=== PATIENT | male | born 1965 | race Caucasian/White ===

== ENCOUNTER 2017-05-08 11:13 | Inpatient (IN) | payer BC ==
[~2017-05-08] VITALS: Ht 177.8 cm; Wt 103.9 kg
[2017-05-08 11:19] VITALS: BP 123/73
[2017-05-08] MEDS ORDERED: METOCLOPRAMIDE 10 MG TAB PO ONE (11:35)
[2017-05-08] MEDS ORDERED: ACETAMINOPHEN EXTRA STRENGTH 500 MG TAB PO ONE (11:35)
--- NOTE | 2017-05-08 11:38 | NUR ---
PT PRESENTS TO ER W/C/O HEADACHE X 3 DAYS. PT DENIES ANY MEDICAL HX. PT STATES HE'S VOMITED X2.PT STATES HE FEEL WEAK; SKIN IS PINK/WARM/DRY; AAOX4 WITH EVEN AND STEADY GAIT; LUNGS CLEAR BL; HR EVEN AND REGULAR; PT DENIES ANY FEVER, CP, SOB, OR COUGH AT THIS TIME; PATIENT STATES PAIN OF 8/10 AT THIS TIME; PATIENT POSITIONED FOR COMFORT; HOB ELEVATED; BEDRAILS UP X2; BED DOWN. ER MD WILL BE NOTIFIED.
[2017-05-08 11:46] LABS: BASOPHILS # (AUTO) 0.1 K/uL (0.00-0.22); BASOPHILS % (AUTO) 0.9 % (0.0-2.0); EOSINOPHILS # (AUTO) 0.1 K/uL (0-0.4); EOSINOPHILS % (AUTO) 0.9 % (0.0-4.0); HEMOGLOBIN 15.3 g/dL (12.0-18.0); LYMPHOCYTES # (AUTO) 0.7 K/uL (2.0-11.5); LYMPHOCYTES % (AUTO) 7.5 % (20.5-51.1); MEAN CORPUSCULAR HEMOGLOBIN 32 pg (27-31); MEAN CORPUSCULAR HGB CONC 33 g/dL (33-37); MEAN CORPUSCULAR VOLUME 96 fL (80-94); MONOCYTES # (AUTO) 0.2 K/uL (0.8-1.0); MONOCYTES % (AUTO) 2.2 % (1.7-9.3); NEUTROPHILS # (AUTO) 7.9 K/uL (1.8-7.7); NEUTROPHILS % (AUTO) 88.5 % (42.2-75.2); PLATELET COUNT (AUTO) 141 K/uL (140-450); RED BLOOD CELL COUNT(AUTO) 4.81 MIL/uL (4.20-6.10); RED CELL DISTRIBUTION WIDTH 12.4 % (11.6-13.7)
--- NOTE | 2017-05-08 11:46 | NUR ---
PT WENT TO CT SCAN ACCOMPANIED BY TECH.
[2017-05-08 11:57] LABS: ANION GAP 9.9 (8-16); CALCIUM 8.4 mg/dL (8.5-10.1); CARBON DIOXIDE 27.8 mmol/L (21-32); CREATININE 0.8 mg/dL (0.7-1.3); POTASSIUM 3.7 mmol/L (3.5-5.1)
--- NOTE | 2017-05-08 11:58 | NUR ---
XRAY AT BESIDE.
[2017-05-08 11:59] LABS: ALBUMIN 3.4 g/dL (3.4-5.0); TOTAL BILIRUBIN 2.2 mg/dL (0.0-1.0); TOTAL PROTEIN, SERUM 7.8 g/dL (6.4-8.2)
[2017-05-08] MEDS ORDERED: ONDANSETRON 4 MG/2 ML VIAL IVP PRN (12:35)
[2017-05-08] MEDS ORDERED: HYDROcodone/APAP 7.5/325 MG 1 TAB PO PRN (12:35)
--- NOTE | 2017-05-08 13:13 | NUR ---
LINDA MEDINA SAID TO TRANSFER PT AFTER 10 MINUTES BECAUSE THEY NEED TO PREPARE THE BED.
--- NOTE | 2017-05-08 13:13 | NUR ---
Patient will be admitted to care of DR VACA. Admited to TELE. Will go to room 119 B. Belongings list completed. Report to LINDA MEDINA.
[2017-05-08 13:24] LABS: BILIRUBIN,URINE 1+ (NEGATIVE); BLOOD, URINE NEGATIVE (NEGATIVE); COLOR,URINE ORANGE (YELLOW); LEUKOCYTE ESTERASE ,URINE NEGATIVE (NEGATIVE); NITRITE, URINE NEGATIVE (NEGATIVE); PH,URINE 5.5 (5.0-9.0); PROTEIN,URINE TRACE (NEGATIVE); UGLUCOSE NEGATIVE (NEGATIVE); UROBILINOGEN,URINE 0.2 EU/dL (0.2 - 1)
[2017-05-08 13:31] LABS: AMPHETAMINE, URINE NEG. ng/ml (NEG <=1000); BARBITURATE, URINE NEG. ng/ml (NEG <=200); BENZODIAZEPINE, URINE POS. ng/mL (NEG <=200); CANNABINOID, URINE NEG. ng/mL (NEG <=50); COCAINE, URINE NEG. ng/mL (NEG <=300); OPIATE, URINE NEG. ng/mL (NEG <=2000); PHENCYCLIDINE SCREEN,URINE NEG. ng/mL (NEG <=25)
[2017-05-08 13:34] LABS: APPEARANCE,URINE HAZY (CLEAR)
[2017-05-08 13:35] LABS: ICTOTEST POSITIVE (NEGATIVE)
[2017-05-08] MEDS ORDERED: MECLIZINE 25 MG TAB PO PRN (13:50)
[2017-05-08 13:55] LABS: INR 1.1 (0.8-1.2); PARTIAL THROMBOPLASTIN TIME 26.8 secs (22-35.6); PROTHROMBIN TIME 11.5 secs (10.8-13.4)
[2017-05-08 14:16] LABS: CHOL/HDL RATIO 3.6 (1-4.5); FREE T4 (FREE THYROXINE) 1.16 ng/dL (0.76-1.46); PHOSPHORUS 2.4 mg/dL (2.5-4.9); THYROID STIMULATING HORMONE 1.71 uIU/mL (0.34-3.74)
--- NOTE | 2017-05-08 14:25 | NUR ---
Admitted from ER , with chief complaint of GENERALIZED WEAKNESS , 51 y/o ,Male, Fatigued,AAOX4, NO S/S OF ACUTE DISTRESS. IV SITE PATENT AND INTACT. PT STATES PAIN IS 10/10 HEADACHE. PREVIOUSLY MEDICATED IN ER. PT APPEARED FATIGUED AND WEAK. HR DROPS TO 34. MD MADE AWARE. CITY WEIGHMASTER MADE AWARE. PT oriented to call light, bed, phone,television, bathroom, smoking policy, visiting hours, procedures, ID bracelet on. Belongings list checked.
[2017-05-08] MEDS ORDERED: NACL 0.9% 1,000 ML IV SCH (14:30)
--- NOTE | 2017-05-08 14:49 | NUR ---
NO ICU BED AVAILABLE AT THIS TIME.
[2017-05-08 15:28] LABS: ACETAMINOPHEN < 0.5 ug/ml (10-30); SALICYLATE < 2.8 mg/dL (2.8-20.0)
[2017-05-08 16:00] VITALS: BP 121/71
[2017-05-08] MEDS ORDERED: ATORVASTATIN 20 MG TAB PO SCH (16:30)
[2017-05-08] MEDS ORDERED: ECOTRIN 81 MG TABEC PO SCH (16:30)
--- NOTE | 2017-05-08 16:35 | NUR ---
PT TRANSFERRED TO ICU.
--- NOTE | 2017-05-08 17:00 | NUR ---
PATIENT RECEIVED FROM LINDA GUADARRAMA. PATIENT IS ALERT AND ORIENTED TO PERSON, PLACE, DATE AND TIME. RIGHT AC PERIPHERAL IV G 20 PATENT AND INTACT. SKIN WARM TO TOUCH WNL, TOENAILS WNL, NO EDEMA, WITH HAIR GROWTH AND +2 BILATERAL PEDAL PULSES. WITH MULTIPLE SKIN HYPOPIGMENTATION NOTED. URINE AND BOWEL CONTINENT, ABLE TO HIS NEEDS KNOWN. SURGICAL SCARRING NOTED ON THE RIGHT KNEE AND RIGHT LATERAL ANKLE. PATIENT CLAIMED THAT HE HAS PLATE ON THE KNEE AND SCREWS ON THE ANKLE DONE IN [facility]. MADE COMFORTABLE IN BED. CALL LIGHT WITHIN REACH. WILL CONTINUE TO MONITOR PATIENT.
[2017-05-08] MEDS: NACL 0.9% 1,000 ML IV SCH (17:16)
[2017-05-08 18:00] VITALS: BP 124/77
--- NOTE | 2017-05-08 18:09 | NUR ---
PATIENT IS EATING DINNER AT THIS TIME. NO COMPLAINTS OF NAUSEA AND VOMITING MADE. WILL MONITOR PATIENT.
--- NOTE | 2017-05-08 19:14 | NUR ---
REPORT GIVEN TO NIGHT RN FOR CONTINUITY OF CARE. PATIENT IN STABLE CONDITION.
--- NOTE | 2017-05-08 19:20 | NUR ---
RECEIVED PT FROM KIRBY RN PT MICRONESIAN SPEAKER AAOX4 HOB 30 DEGREE ON ROTARY SHEAR WORKER HELPER BRADYCARDIA HR 41 AND DROP TO 39 AND BACK TO 41 IV ON RT AC INFUSING WELL DENIES ANY PAIN OR DISCOMFORT PA IS REPOSITIONED BLE SEQUENTIAL STOCKING WILL BE PUT ON TO THE PT INITIAL ASSESSMENT DONE
--- NOTE | 2017-05-08 19:30 | NUR ---
PUT STANDBY EXTERNAL PACEMAKER AT BEDSIDE.
[2017-05-08 20:00] VITALS: BP 117/66
--- NOTE | 2017-05-08 20:20 | NUR ---
PTON CUSTOMER SUPPORT AGENT SB ASYMPTOMATIC DR VILLEDA IS HERE AND WAS NOTIFY PT CONDITION
[2017-05-08] MEDS: DOCUSATE SODIUM 100 MG GELCAP PO SCH (21:01)
--- NOTE | 2017-05-08 21:14 | NUR ---
PT WATCHING TV, DENIES ANY DISCOMFORT AT THIS TIME ON UTILIZATION REVIEW NURSE ONE EPISODE THIRD DEGREE AV BLOCK , CHARGE NURSE ALLYSON AWARE AND WILL REPORT TO DR VILLEDA
--- NOTE | 2017-05-08 21:15 | NUR ---
HAD A BOUT OF COMPLETE HEART BLOCK SEEN IN THE MONITOR; DR. VILLEDA WAS INFORMED AND AWARE;NO NEW ORDER MADE.
[2017-05-08 22:00] VITALS: BP 111/88
--- NOTE | 2017-05-08 22:16 | NUR ---
PT WATCHING TV DENIES ANY DISCOMFORT AT THIS TIME ON TRAILER CHIEF SB HR 41 VARY TO 38, 39
[2017-05-09] VITALS (11 sets, daily range): BP systolic 103–130; BP diastolic 58–87
--- NOTE | 2017-05-09 | NUR ---
PT REPOSITIONED Q2H NOT DISTRESS NOTED EKG DONE SB WITH 1 DEGREE AV BLOCK PT ON CARDIAC MONIOR SB 1 DEGREE AV BLOCK GETTING SLEEP
[2017-05-09] MEDS: ACETAMINOPHEN 325 MG TAB PO PRN ×2 (00:54→21:01)
--- NOTE | 2017-05-09 01:30 | NUR ---
DR. VILLEDA IN, UPDATED ON PATIENT'S MEDICAL CONDITION ESPECIALLY PATIENT'S CARDIAC RHYTHM AND HE HIMSELF OBSERVE PATIENT'S VARIABLE CARDIAC RHYTHM FROM SINUS CHIARA WITH IST DEGREE AVB, JUNCTIONAL RHYTHM TO COMPLETE HEART BLOCK; NO FURTHER ORDER MADE; PATIENT STILL AWAITING TO BE SEEN BY A WET MIXER.
--- NOTE | 2017-05-09 02:13 | NUR ---
PT AWAKE WATCHING TV DENIES ANY PAIN SB HR 42, REPOSITIONED Q2H
--- NOTE | 2017-05-09 03:50 | NUR ---
OBSERVED PATIENT IN CHB AGAIN; PATIENT IS SLEEPING BUT AROUSABLE; PAGED DR. VILLEDA AND INFORM HIM AGAIN ABOUT THE PATIENT'S CARDIAC RHYTHM AND EVEN SUGGESTED IF I COULD PUT OR ATTACH THE PATIENT INTO A PERCUTANEOUS PACEMAKER BUT HE SAID "NO".
--- NOTE | 2017-05-09 04:00 | NUR ---
PT AWAKE, SPONGE BATH GIVEN ON SIGNING AGENT SB 1 AV BLOCK DENIES ANY PAIN OR DISCOMFORT PT REPOSITIONED Q2H , IV ON RT AC INFUSING WELL.
[2017-05-09] MEDS: NACL 0.9% 1,000 ML IV SCH ×2 (04:44→05:25)
[2017-05-09] MEDS ORDERED: KETOROLAC 30 MG/ML VIAL IVP ONE (05:40)
[2017-05-09 05:52] LABS: BASOPHILS # (AUTO) 0.1 K/uL (0.00-0.22); BASOPHILS % (AUTO) 1.3 % (0.0-2.0); EOSINOPHILS # (AUTO) 0.1 K/uL (0-0.4); EOSINOPHILS % (AUTO) 1.3 % (0.0-4.0); HEMATOCRIT 44.2 % (36-52); HEMOGLOBIN 14.6 g/dL (12.0-18.0); LYMPHOCYTES % (AUTO) 10.3 % (20.5-51.1); MEAN CORPUSCULAR HEMOGLOBIN 32 pg (27-31); MEAN CORPUSCULAR HGB CONC 33 g/dL (33-37); MEAN CORPUSCULAR VOLUME 96 fL (80-94); MONOCYTES % (AUTO) 9.8 % (1.7-9.3); NEUTROPHILS # (AUTO) 7.6 K/uL (1.8-7.7); NEUTROPHILS % (AUTO) 77.3 % (42.2-75.2); PLATELET COUNT (AUTO) 133 K/uL (140-450); RED BLOOD CELL COUNT(AUTO) 4.63 MIL/uL (4.20-6.10); RED CELL DISTRIBUTION WIDTH 12.7 % (11.6-13.7); WHITE BLOOD COUNT (AUTO) 9.8 K/uL (4.8-10.8)
[2017-05-09 06:06] LABS: ANION GAP 9.8 (8-16); CALCIUM 7.9 mg/dL (8.5-10.1); CREATININE 0.8 mg/dL (0.7-1.3); POTASSIUM 3.8 mmol/L (3.5-5.1)
[2017-05-09 06:13] LABS: MAGNESIUM 1.9 mg/dL (1.8-2.4); PHOSPHORUS 2.4 mg/dL (2.5-4.9)
--- NOTE | 2017-05-09 06:27 | NUR ---
PT AAOX4 GETTING SLEEP ON INDUSTRIAL GAS SERVICE HELPER SB 1 DEGREE AV BLOCK ON TKO HR 41 VARY 38
[2017-05-09] MEDS: CALCIUM CARBONATE 500 MG TAB PO SCH ×2 (06:35→21:00)
--- NOTE | 2017-05-09 07:10 | NUR ---
RECEIVED REPORT FROM NIGHT RN FOR CONTINUITY OF CARE. PATIENT IS ALERT AND ORIENTED X4. ABLE TO MAKE HIS NEEDS KNOWN. RIGHT AC PERIPHERAL IV G20 PATENT AND INTACT. CALL LIGHT WITHIN REACH. WILL CONTINUE TO MONITOR PATIENT.
--- NOTE | 2017-05-09 07:30 | NUR ---
BREAKFAST TRAY SERVED.
[2017-05-09] MEDS ORDERED: APAP/BUTAL/CAFF 325/50/40 MG 1 TAB PO PRN ×2 (08:05→14:00)
--- NOTE | 2017-05-09 08:25 | NUR ---
PATIENT HAS BEEN SCREENED AND CATEGORIZED MODERATE NUTRITION RISK. PATIENT WILL BE SEEN WITHIN 3-5 DAYS OF ADMISSION. 05/11/17-05/13/[address]
[2017-05-09] MEDS: DOCUSATE SODIUM 100 MG GELCAP PO SCH ×2 (08:42→21:01)
[2017-05-09] MEDS: ATORVASTATIN 20 MG TAB PO SCH (08:42)
[2017-05-09] MEDS: ECOTRIN 81 MG TABEC PO SCH (08:43)
[2017-05-09] MEDS ORDERED: PANTOPRAZOLE 40 MG INJ VIAL IVP SCH (09:00)
--- NOTE | 2017-05-09 09:00 | NUR ---
RESIDENT PHYSICIAN DR FARIAS MADE AWARE OF PATIENT'S HEART RATE OF 33. PATIENT IS ASYMPTOMATIC NO COMPLAINTS OF DIZZINESS NOR NAUSEA AND VOMITING. BP 110/45. WILL CONTINUE TO MONITOR PATIENT.
--- NOTE | 2017-05-09 10:38 | NUR ---
CM NOTE RECEIVED ORDER FOR TRANSFER FOR HIGHER LEVEL OF CARE, INFORMED MY [facility] CM KARSON Rowley # [phone] EXT [phone] AND SHE SAID [facility] IS THEIR CONTRACTED FACILITY. INITIAL REVIEW FAXED TO MY [facility] [phone] KARSON TIERNEY [phone] EXT [phone]. CALLED [facility] AND SPOKE WITH DMITRI OF ADMITTING [phone] TO REQUEST FOR A BED. CALLED [facility] TO GET AN ACCEPTING DOCTOR IN [facility] [phone], AND I WAS INFORMED THAT ROUNDING TODAY IS DR. CARTAGENA, DR. Amaris FARIAS AWARE. SPOKE WITH DR. Amaris FARIAS WHO SAID WE HAVE A ILLUSTRATOR SET, DR. Jered MACIAS, TO SEE THE PATIENT SO NO NEED TO TRANSFER PATIENT FOR HIGHER LEVEL OF CARE. DR. Amaris FARIAS SAID SHE WILL INFORM ACCEPTING DOCTOR IN [facility]: TRANSFER CANCELLED. SPOKE WITH DMITRI OF [place] ADMITTING TO CANCEL REQUEST FOR BED.
--- NOTE | 2017-05-09 14:14 | NUR ---
*LATE ENTRY CM NOTE PER ICU DIRECTOR JORGITO, PER [facility], MY [facility] PATIENTS GO TO DR. FRANCISCO'S GRP. RECEIVED A CALL FROM MY [facility] JULIO CESAR Gutierrez PH# [phone] EXT [phone] AND SHE SAID PATIENT HAS TO BE TRANSFERRED TO THEIR CONTRACTED FACILITY. SPOKE WITH DR. Amaris FARIAS PH# [phone] TO INFORM HER AND SHE SAID PATIENT NEEDS TO BE SEEN BY AUTOMOTIVE TECHNOLOGY INSTRUCTOR FIRST BECAUSE PULSE RATE IS LOW AND NOT STABLE FOR TRANSFER AT THIS TIME. JULIO CESAR Gutierrez AWARE.
[2017-05-09] MEDS ORDERED: SODIUM PHOS / POTASSIUM PHOS 1 PKT PDR PO SCH (19:00)
--- NOTE | 2017-05-09 19:25 | NUR ---
RECEIVED REPORT FROM KIRBY MCKEON
--- NOTE | 2017-05-09 19:30 | NUR ---
REPORT GIVEN TO NIGHT RN FOR CONTINUITY OF CARE. PATIENT IS STABLE CONDITION. STILL AWAITING FOR DR. Leni MACIAS TO SEE PATIENT.
--- NOTE | 2017-05-09 19:30 | NUR ---
PATIENT IN BED NO SIGNS OF DISTRESS. PATIENT AOX4. CLEAR BREATH SOUNDS ON AUSCULTATION. SINUS CHIARA ON MONITOR, ACTIVE BOWEL SOUNDS. PATIENT VOIDING. PATIENT WALKS OCCASIONALLY. IV 20G ON RIGHT AC. PATIENT AWAITING CONSULT FROM ANTIQUE AUTOMOBILES REPAIRER
--- NOTE | 2017-05-09 21:10 | NUR ---
PATIENT CHANGED TO TELE STATUS. HEART RATE 39, PATIENT IS NOT IN DISTRESS.
[2017-05-09] MEDS ORDERED: SODIUM PHOS / POTASSIUM PHOS 1 PKT PDR ONE (21:46)
--- NOTE | 2017-05-09 23:00 | NUR ---
PATIENT VOIDED 300ML, TOLERATED WELL. NO SIGNS OF DISTRESS.
[2017-05-10] VITALS (7 sets, daily range): BP systolic 109–128; BP diastolic 64–76
--- NOTE | 2017-05-10 | NUR ---
PATIENT IN BED SLEEPING
--- NOTE | 2017-05-10 04:00 | NUR ---
PATIENT SLEEPING, NO SIGNS OF DISTRESS. FREQUENT VISUAL CHECKS, HEART RATE 38, PATIENT ASYMPTOMATICS.
[2017-05-10] MEDS: NACL 0.9% 1,000 ML IV SCH (05:25)
[2017-05-10 05:39] LABS: BASOPHILS # (AUTO) 0.1 K/uL (0.00-0.22); BASOPHILS % (AUTO) 1.5 % (0.0-2.0); EOSINOPHILS # (AUTO) 0.1 K/uL (0-0.4); EOSINOPHILS % (AUTO) 1.5 % (0.0-4.0); HEMATOCRIT 45.5 % (36-52); HEMOGLOBIN 15.1 g/dL (12.0-18.0); LYMPHOCYTES # (AUTO) 1.4 K/uL (2.0-11.5); LYMPHOCYTES % (AUTO) 16.9 % (20.5-51.1); MEAN CORPUSCULAR HEMOGLOBIN 32 pg (27-31); MEAN CORPUSCULAR HGB CONC 33 g/dL (33-37); MEAN CORPUSCULAR VOLUME 96 fL (80-94); MONOCYTES # (AUTO) 0.6 K/uL (0.8-1.0); MONOCYTES % (AUTO) 7.8 % (1.7-9.3); NEUTROPHILS # (AUTO) 5.9 K/uL (1.8-7.7); NEUTROPHILS % (AUTO) 72.3 % (42.2-75.2); PLATELET COUNT (AUTO) 137 K/uL (140-450); RED BLOOD CELL COUNT(AUTO) 4.74 MIL/uL (4.20-6.10); RED CELL DISTRIBUTION WIDTH 12.3 % (11.6-13.7); WHITE BLOOD COUNT (AUTO) 8.1 K/uL (4.8-10.8)
--- NOTE | 2017-05-10 06:30 | NUR ---
IV IN THE RIGHT AC INFILTRATED, IV REMOVED. NEW KATEY PLACED IN RIGHT FOREARM.
[2017-05-10 07:00] LABS: ANION GAP 10.9 (8-16); CALCIUM 8.2 mg/dL (8.5-10.1); CARBON DIOXIDE 25.7 mmol/L (21-32); CREATININE 0.8 mg/dL (0.7-1.3); POTASSIUM 3.6 mmol/L (3.5-5.1)
[2017-05-10 07:03] LABS: PHOSPHORUS 3.2 mg/dL (2.5-4.9)
--- NOTE | 2017-05-10 07:30 | NUR ---
REPORT GIVEN TO MARIELLE MCKEON
--- NOTE | 2017-05-10 07:32 | NUR ---
RECEIVED REPORT FROM LINDA BIRD. NO SIGNS OF ACUTE DISTRESS AT THIS TIME, DENIES PAIN. PT IS AAOX4. PT IS ON ROOM AIR. IV TO RIGHT FOREARM #20 PATENT AND INTACT. SKIN IS INTACT. SAFETY PRECAUTIONS IN PLACE WITH BED IN LOWEST POSITION AND SIDE RAILS UP. CALL LIGHT WITHIN REACH. PT IS CURRENTLY SINUS BRADYCARDIA ON THE MONITOR. PT TO BE TRANSFERRED TO TELEMETRY UNIT, ROOM 107B. CALLED UNIT, BUT INFORMED CHARGE NURSE IS ROUNDING. WILL FOLLOW UP. Addendum: 05/10/17 at 0941 by Rahel Arteaga RN PT IS SB WITH 1ST DEGREE AVB
--- NOTE | 2017-05-10 07:45 | NUR ---
DR. VACA' GROUP IN TO SEE PT. WILL FOLLOW UP ON ORDERS.
[2017-05-10] MEDS ORDERED: PROBIOTIC SCREEN 1 EA MISC MC PRN (07:50)
--- NOTE | 2017-05-10 08:06 | NUR ---
PT UP AND EATING BREAKFAST WITH NO ISSUES. WILL CONTINUE TO MONITOR.
[2017-05-10] MEDS: ATORVASTATIN 20 MG TAB PO SCH (08:24)
[2017-05-10] MEDS: DOCUSATE SODIUM 100 MG GELCAP PO SCH ×2 (08:24→20:09)
[2017-05-10] MEDS: CALCIUM CARB/VIT-D 500 MG/200 IU 1 TAB PO SCH (08:24)
[2017-05-10] MEDS: ECOTRIN 81 MG TABEC PO SCH (08:25)
[2017-05-10] MEDS: CALCIUM CARBONATE 500 MG TAB PO SCH ×2 (08:27→20:10)
--- NOTE | 2017-05-10 08:28 | NUR ---
PT TOLERATED MEDS WELL.
[2017-05-10] MEDS ORDERED: ASPI81CT80 PO (08:31)
[2017-05-10] MEDS ORDERED: ACET-9234 PO (08:31)
[2017-05-10] MEDS ORDERED: ATOR20TA PO (08:31)
[2017-05-10] MEDS ORDERED: OSC500 PO (08:31)
--- NOTE | 2017-05-10 08:32 | NUR ---
PT TO BE TRANSFERRED TO CONTRACTED FACILITY. WILL FOLLOW UP WITH CASE MANAGEMENT.
--- NOTE | 2017-05-10 08:34 | NUR ---
CM NOTE CONCURRENT REVIEW AND ORDER FOR TRANSFER TO CONTRACTED FACILITY FAXED TO MY [facility] [phone] KARSON TIERNEY [phone] EXT [phone].
--- NOTE | 2017-05-10 09:57 | NUR ---
JULIO CESAR LUGO SPOKE WITH MY FAMILY [facility] JULIO CESAR Gutierrez PH [phone] AND SHE SAID TO SEND INQUIRY FOR A BED TO [facility] AND [facility]. SPOKE WITH NURSE AUTO BRAKE MECHANIC NEO SINGH OF [facility] PH# [phone] AND SHE SAID THEY DON'T HAVE ANY BED AVAILABLE AT THIS TIME. SPOKE WITH DMITRI OF [facility] [phone] WHO SAID WE'RE WAITING FOR AN ACCEPTING DOCTOR AND ROOM. PER JULIO CESAR TY, ACCEPTING FACILITY [place] AUTH# [id number]
--- NOTE | 2017-05-10 09:59 | NUR ---
BROUGHT PT HIS BIBLE REQUESTED. ALL NEEDS MET. CALL LIGHT WITHIN REACH.
--- NOTE | 2017-05-10 10:54 | NUR ---
CM NOTE SPOKE WITH DMITRI OF [facility] TO FOLLOW UP AND HE SAID ACCEPTING IS DR. CARTAGENA AND STILL WAITING FOR A BED. SPOKE WITH MY [facility] KARSON PH [phone] AND SHE SAID [facility]SP[facility] AUTH# [id number]. CHARGE NURSE LELIA AND ICU NURSE MARIELLE MCGILL.
--- NOTE | 2017-05-10 11:23 | NUR ---
RECEIVED CALL FROM LAB. PT HAS POSITIVE MRSA OF THE NARES, REPORTED TO DR. FARIAS. CONTACT ISOLATION PROTOCOL INITIATED.
--- NOTE | 2017-05-10 11:27 | NUR ---
NOTIFIED KIRBY FROM CASE MANAGEMENT THAT PT IS POSITIVE MRSA FOR NARES.
--- NOTE | 2017-05-10 12:05 | NUR ---
PT UP AND EATING LUNCH WITH NO ISSUES. CALL LIGHT WITHIN REACH.
--- NOTE | 2017-05-10 13:10 | NUR ---
PT'S CHILDREN PRESENT AT BEDSIDE.
[2017-05-10] MEDS: CHLORHEXADINE GLUC 2% CLOTH TP SCH (13:33)
[2017-05-10] MEDS: MUPIROCIN 2% OINT 22 GM TUBE TP SCH (13:33)
--- NOTE | 2017-05-10 13:37 | NUR ---
PT TOLERATED MEDS WELL.
--- NOTE | 2017-05-10 14:04 | NUR ---
RECEIVED UPDATE FROM GREY GOODS TESTER, KIRBY. AWAITING CALLBACK FROM [facility] REGARDING ISOLATION BED AT THIS TIME.
--- NOTE | 2017-05-10 14:06 | NUR ---
CM NOTE SPOKE WITH DMITRI OF [facility] [phone] TO FOLLOW UP ON BED FOR PATIENT. PER DMITRI, STILL WAITING FOR A BED. GAVE HIM THE NUMBER TO THE NURSING STATION WHERE PATIENT IS IN CASE IT BECOMES AVAILABLE AT A LATER TIME TODAY. ICU NURSE MARIELLE MCGILL.
--- NOTE | 2017-05-10 15:06 | NUR ---
CHECKED ON PT. ALL NEEDS MET AT THIS TIME. CALL LIGHT WITHIN REACH.
--- NOTE | 2017-05-10 16:23 | NUR ---
PT'S PRESENT AT BEDSIDE.
--- NOTE | 2017-05-10 18:29 | NUR ---
CHECKED ON PT. ALL NEEDS MET AT THIS TIME. CALL LIGHT WITHIN REACH.
--- NOTE | 2017-05-10 19:15 | NUR ---
RECEIVED REPORT FROM LINDA PALOMARES AT BEDSIDE, PT IS AAOX4, ABLE TO FOLLOW COMMANDS AND MAKE NEEDS KNOWN, DENIES PAIN, VSS, NO S/S OF DISTRESS, BREATHING EVEN AND UNLABORED, CLEAR LUNG SOUNDS, ON RA, DENIES CHEST PAIN, SB WITH ONE DEGREE OF AV BLOCK, SOFT ABDOMEN WITH ACTIVE BOWEL SOUNDS, CONTINENT WITH B&B'S, ABLE TO AMBULATE WITH STEADY GAIT, AFEBRILE, SKIN IS INTACT, WARM AND DRY TO TOUCH, IV SITE TO RIGHT FOREARM 20GA RUNNING WITH NS AT 10ML, SCD'S TO BLE, SAFETY MEASURES IN PLACE, CALL LIGHT WITHIN REACH, WILL CONTINUE TO MONITOR.
--- NOTE | 2017-05-10 19:17 | NUR ---
ENDORSED CARE TO LINDA JIMENEZ. PT IN STABLE CONDITION.
--- NOTE | 2017-05-10 20:40 | NUR ---
RECEIVED REPORT FROM ICU NURSE. PT FAMILY AT BEDSIDE. PT RESTING IN BED, AOX4, ABLE TO VERBALIZE NEEDS. VS NOTED, BP 114/65, HR 44, SPO2 94% AT ROOM AIR, RR 18, TEMP 98.2; PT C/O GENERALIZED WEAKNESS. PT DENIES CHEST PAIN, SOB OR S/S OF ACUTE DISTRESS. IV ACCESS ASYMPTOMATIC, PATENT AND INTACT. IVF INFUSING WELL. DISCUSSED AND REVIEWED PLAN OF CARE WITH PT. PT VERBALIZED UNDERSTANDING. PT ASKING FOR DOCTOR'S NOTE FOR WORK, WILL NOTIFY DR VILLEDA, BANDER AND CELLOPHANER MACHINE FOR DR VACA. SAFETY MEASURES ENSURED. CALL LIGHT WITHIN REACH. WILL CONTINUE TO MONITOR.
[2017-05-10] MEDS: ACETAMINOPHEN 325 MG TAB PO PRN (23:55)
--- NOTE | 2017-05-10 23:55 | NUR ---
PT C/O HEADACHE. SEE PAIN ASSESSMENT. ADMINISTERED TYLENOL PRN ORDERED. TEMP 99.8, COOLING MEASURES ENSURED AND TYLENOL ALREADY ADMINISTERED. IVF INFUSING WELL. ALL NEEDS MET. SAFETY MEASURES ENSURED. CALL LIGHT WITHIN REACH. WILL CONTINUE TO MONITOR.
[2017-05-11] VITALS: BP 104/70
[2017-05-11 04:00] VITALS: BP 101/56
--- NOTE | 2017-05-11 04:00 | NUR ---
PT SLEEPING. CONDITION STABLE. IVF INFUSING WELL. ALL NEEDS MET. SAFETY MEASURES ENSURED. CALL LIGHT WITHIN REACH. WILL CONTINUE TO MONITOR.
[2017-05-11] MEDS: NACL 0.9% 1,000 ML IV SCH (05:11)
--- NOTE | 2017-05-11 06:00 | NUR ---
PT'S SHIPPING SUPERVISOR ALARM LIMIT ADJUSTED TO HR 40, NEWSPAPER PRESS OPERATOR APPRENTICE AWARE. MD AWARE.
[2017-05-11 06:31] LABS: BASOPHILS # (AUTO) 0.2 K/uL (0.00-0.22); BASOPHILS % (AUTO) 2.5 % (0.0-2.0); EOSINOPHILS # (AUTO) 0.2 K/uL (0-0.4); EOSINOPHILS % (AUTO) 1.9 % (0.0-4.0); HEMATOCRIT 47.2 % (36-52); LYMPHOCYTES # (AUTO) 1.3 K/uL (2.0-11.5); LYMPHOCYTES % (AUTO) 15.7 % (20.5-51.1); MEAN CORPUSCULAR HEMOGLOBIN 33 pg (27-31); MEAN CORPUSCULAR HGB CONC 34 g/dL (33-37); MEAN CORPUSCULAR VOLUME 96 fL (80-94); MONOCYTES # (AUTO) 0.9 K/uL (0.8-1.0); NEUTROPHILS # (AUTO) 5.4 K/uL (1.8-7.7); NEUTROPHILS % (AUTO) 68.9 % (42.2-75.2); PLATELET COUNT (AUTO) 153 K/uL (140-450); RED CELL DISTRIBUTION WIDTH 12.4 % (11.6-13.7)
[2017-05-11 06:39] LABS: ANION GAP 10.1 (8-16); CALCIUM 8.8 mg/dL (8.5-10.1); CARBON DIOXIDE 27.5 mmol/L (21-32); CREATININE 0.9 mg/dL (0.7-1.3); POTASSIUM 3.6 mmol/L (3.5-5.1)
[2017-05-11 06:44] LABS: MAGNESIUM 2.1 mg/dL (1.8-2.4); PHOSPHORUS 4.1 mg/dL (2.5-4.9)
--- NOTE | 2017-05-11 07:15 | NUR ---
ENDORSED PLAN OF CARE TO AM NURSE. CONDITION STABLE.
--- NOTE | 2017-05-11 07:16 | NUR ---
RECEIVED REPORT FROM NIGHT RN AT PT BEDSIDE. PT RESTING IN BED. C/O HEADACHE. ALERT AND ORIENTED. WILL MEDICATE ORDERED. DENIES CHEST PAIN. NO S/S OF RESPIRATORY DISTRESS. IV SITE PATENT AND INTACT. CALL LIGHT WITHIN REACH.
[2017-05-11] MEDS: ATORVASTATIN 20 MG TAB PO SCH (07:52)
[2017-05-11] MEDS: CALCIUM CARB/VIT-D 500 MG/200 IU 1 TAB PO SCH (07:52)
[2017-05-11] MEDS: DOCUSATE SODIUM 100 MG GELCAP PO SCH (07:52)
[2017-05-11] MEDS: CALCIUM CARBONATE 500 MG TAB PO SCH (07:52)
[2017-05-11] MEDS: ACETAMINOPHEN 325 MG TAB PO PRN (07:52)
[2017-05-11] MEDS: ECOTRIN 81 MG TABEC PO SCH (07:52)
--- NOTE | 2017-05-11 07:59 | NUR ---
CM NOTE SPOKE WITH DMITRI OF [facility] [phone] TO FOLLOW UP ON A BED AND HE SAID THERE'S STILL NO BED AVAILABLE AT THIS TIME BUT THEY'RE ANTICIPATING DISCHARGES TODAY. WILL FOLLOW UP. CHARGE NURSE LETICIA MCGILL.
[2017-05-11 08:00] VITALS: BP 105/72
--- NOTE | 2017-05-11 08:24 | NUR ---
CM NOTE CONCURRENT REVIEW FAXED TO MY [facility] [phone] KARSON TIERNEY [phone] (DIRECT)
--- NOTE | 2017-05-11 09:36 | NUR ---
PER . OKAY TO TAKE PATIENT OFF TELE FOR SHOWER. PATIENT AMBULATORY. NO S/S OF ACUTE DISTRESS. DENIES HEADACHE DIZZINESS. STEADY GAIT.
[2017-05-11] MEDS: MUPIROCIN 2% OINT 22 GM TUBE TP SCH (11:36)
[2017-05-11] MEDS: CHLORHEXADINE GLUC 2% CLOTH TP SCH (11:36)
[2017-05-11 12:00] VITALS: BP 121/71
--- NOTE | 2017-05-11 12:40 | NUR ---
PATIENT TAKEN OFF UNIT FOR STRESS TEST. NO S/S OF ACUTE DISTRESS.
--- NOTE | 2017-05-11 12:55 | NUR ---
JULIO CESAR LUGO FOLLOWED UP FOR A BED IN [facility], SPOKE WITH TIFFANIE CARNES [phone] WHO SAID STILL NO BED AVAILABLE AT THIS TIME. SPOKE WITH NEO SINGH OF [facility] WHO SAID THEY DON'T HAVE A BED AVAILABLE AT THIS TIME. CHARGE NURSE LETICIA MCGILL. SPOKE TO MY FAMILY JULIO CESAR TY TO INFORM HER AND SHE SAID THOSE ARE THE ONLY HOSPITALS THEY ARE CONTRACTED WITH. I ASKED JULIO CESAR TY IF THEY ARE WILLING TO AUTHORIZE IF WE HAVE A BILINGUAL CUSTOMER SERVICE SPECIALIST TO SEE THE PATIENT AND SHE SAID MY FAMILY [facility] IS WILLING TO AUTHORIZE THE BILINGUAL CUSTOMER SERVICE SPECIALIST HERE AND THAT THEY ARE ALSO AUTHORIZING THIS HOSPITAL STAY PENDING BED AVAILABILITY IN THEIR CONTRACTED HOSPITAL. DR. Amaris MCGILL.
--- NOTE | 2017-05-11 13:27 | NUR ---
PATIENT RETURNED FROM STRESS TEST. NO S/S OF ACUTE DISTRESS NOTED. SITTING UP AT BEDSIDE FOR LUNCH.
--- NOTE | 2017-05-11 13:28 | NUR ---
STRESS TEST DONE
--- NOTE | 2017-05-11 14:40 | NUR ---
CM NOTE SPOKE WITH CANDICE OF [facility] [phone] AND NEO SINGH OF [facility] [phone] TO CANCEL BED REQUEST, PATIENT IS BEING DISCHARGED HOME. MY [facility] CM KARSON MCGILL PH [phone].
--- NOTE | 2017-05-11 15:00 | NUR ---
PATIENT DISCHARGE INSTRUCTIONS GIVEN. VERBALIZED UNDERSTANDING. IV REMOVED, CANULA INTACT. DISCHARGE MEDICATION TEACHING GIVEN, VERBALIZED UNDERSTANDING. NO S/S OF ACUTE DISTRESS. MD SPOKE WITH PATIENT REGARDING DISCHARGE AND FOLLOW UP INSTRUCTIONS. AWAITING RIDE FOR PATIENT.
--- NOTE | 2017-05-11 16:06 | NUR ---
PATIENT PICKED UP BY DAUGHTER AND SON. ESCORTED PATIENT TO FRONT LOBBY. NO S/S OF ACUTE DISTRESS.
== END 2017-05-11 16:05 | disposition home or self-care (01) | DRG 640 ==
LOC: MED 11:13 → MTU 12:35 → MIC 17:29 → MTU 05-10 20:39
PROVIDERS: ADMIT Family Medicine; ATTEND Family Medicine
DX: E86.0 Dehydration (principal); N17.0 Acute kidney failure with tubular necrosis; G90.9 Disorder of the autonomic nervous system, unspecified; E87.1 Hypo-osmolality and hyponatremia; E80.7 Disorder of bilirubin metabolism, unspecified; F10.21 Alcohol dependence, in remission; E83.39 Other disorders of phosphorus metabolism; E83.51 Hypocalcemia; R80.9 Proteinuria, unspecified; E78.5 Hyperlipidemia, unspecified; R00.1 Bradycardia, unspecified; Z87.891 Personal history of nicotine dependence
CPT/HCPCS: 36415; 70450; 71010; 76705; 80048; 80053; 80305; 81003; 82150; 82247; 82248; 83036; 83690; 83735; 83880; 84100; 84439; 84443; 84484; 85025; 85610; 85651; 85730; 87081; 93005; 93017; 93880; 99285; G0480; J7030; J8597; Q0092

== ENCOUNTER 2021-06-24 09:36 | Emergency (ER) | payer BC, OTHER ==
[~2021-06-24] VITALS: Ht 180.3 cm; Wt 106.1 kg
[~2021-06-24 09:36] MED LIST: ACET-9234 PO; ASPI-1749 PO; ATOR20TA PO; OSC500 PO
[2021-06-24 09:42] VITALS: BP 160/88
--- NOTE | 2021-06-24 09:47 | NUR ---
PATIENT AMBULATED TO BED 4 STEADY GAIT.
--- NOTE | 2021-06-24 09:50 | NUR ---
PATIENT AMBULATED TO BATHROOM, ATTEMPT TO PROVIDE URINE SAMPLE.
--- NOTE | 2021-06-24 09:55 | NUR ---
55 YO MALE BIBS C/O DIFFICULTY URINATING SINCE LAST NIGHT. STATES HE HAS THE URGE BUT UNABLE TO PASS URINE/OR VERY LITTLE AMOUNT PASSES, STATING 10/10 SUPRAPUBIC PAIN WHEN TRYING TO URINATE. UPON ASSESSMENT PATIENT HAS ABDOMINAL DISTENTION, ATTEMPTED URINE SAMPLE, SMALL AMOUNT IN CUP APPEARED CLEAR AND YELLOW, NO BLOOD IN URINE. PATIENT STATES HE VISITED PCP 3 WEEKS AGO, HE WAS TOLD THAT HE HAS INFLAMMATION OF THE PROSTATE. STATES THIS RETENTION JUST STARTED YESTERDAY, NO PRIOR ISSUES. PATIENT PLACED IN GOWN. A&OX4, VSS. MEDHX: DENIES ALLERGIES: DENIES
--- NOTE | 2021-06-24 10:02 | NUR ---
MD AT BEDSIDE EVALUATING PATIENT, ULTRASOUND TO BLADDER PERFORMED AT BEDSIDE.
--- NOTE | 2021-06-24 10:15 | NUR ---
ONOFRE CATHETER INSERTED 16FR USING STERILE TECHNIQUE, PER MD ORDER. 1200 CC OF CLEAR YELLOW URINE COLLECTED.
--- NOTE | 2021-06-24 10:16 | NUR ---
URINE SAMPLE COLLECTED VIA ONOFRE AND GIVEN TO BUSINESS SOLUTIONS CONSULTANT.
--- NOTE | 2021-06-24 10:20 | NUR ---
CLAIMS ACCOUNT SPECIALIST AT BEDSIDE COLLECTING BLOOD SAMPLES.
[2021-06-24 10:29] LABS: APPEARANCE,URINE CLEAR (CLEAR); BASOPHILS % (AUTO) 0.2 % (0.0-2.0); BILIRUBIN,URINE NEGATIVE (NEGATIVE); BLOOD, URINE TRACE-I (NEGATIVE); COLOR,URINE YELLOW (YELLOW); EOSINOPHILS % (AUTO) 0.1 % (0.0-4.0); HEMATOCRIT 44.1 % (36-52); HEMOGLOBIN 15.3 g/dL (12.0-18.0); LEUKOCYTE ESTERASE ,URINE NEGATIVE (NEGATIVE); LYMPHOCYTES # (AUTO) 0.6 K/uL (2.0-11.5); LYMPHOCYTES % (AUTO) 7.8 % (20.5-51.1); MEAN CORPUSCULAR HEMOGLOBIN 33 pg (27-31); MEAN CORPUSCULAR HGB CONC 35 g/dL (33-37); MEAN CORPUSCULAR VOLUME 95.2 fL (80-94); MONOCYTES # (AUTO) 0.4 K/uL (0.8-1.0); MONOCYTES % (AUTO) 5.7 % (1.7-9.3); NEUTROPHILS # (AUTO) 6.6 K/uL (1.8-7.7); NEUTROPHILS % (AUTO) 86.2 % (42.2-75.2); NITRITE, URINE NEGATIVE (NEGATIVE); PH,URINE 6.5 (5.0-9.0); PLATELET COUNT (AUTO) 168 K/uL (140-450); RED BLOOD CELL COUNT(AUTO) 4.64 MIL/uL (4.20-6.10); RED CELL DISTRIBUTION WIDTH 13.4 % (11.6-13.7); UGLUCOSE NEGATIVE (NEGATIVE); WHITE BLOOD COUNT (AUTO) 7.7 K/uL (4.8-10.8)
[2021-06-24 10:37] LABS: RBC,URINE 0-5 /HPF (0-5); WBC,URINE NONE SEEN /HPF (0-5)
[2021-06-24 10:43] LABS: ALBUMIN 3.4 g/dL (3.4-5.0); ANION GAP 10.2 (8-16); CARBON DIOXIDE 25.9 mmol/L (21-32); CREATININE 0.7 mg/dL (0.6-1.3); POTASSIUM 4.1 mmol/L (3.5-5.1); TOTAL BILIRUBIN 1.6 mg/dL (0.0-1.0)
[2021-06-24] MEDS ORDERED: TAMS0.4C96 PO (11:21)
[2021-06-24 11:30] VITALS: BP 93/59
--- NOTE | 2021-06-24 11:48 | NUR ---
Patient discharged with v/s stable. Written and verbal after care instructions given and explained. Patient alert, oriented and verbalized understanding of instructions. Ambulatory with steady gait. All questions addressed prior to discharge. ID band removed. Patient advised to follow up with PMD. Rx of FLOMAX given. Patient educated on indication of medication including possible reaction and side effects. Opportunity to ask questions provided and answered.
== END 2021-06-24 11:48 | disposition home or self-care (01) ==
LOC: MED 09:36
DX: R33.9 Retention of urine, unspecified (principal); Z79.899 Other long term (current) drug therapy
CPT/HCPCS: 36415; 51702; 80053; 81001; 85025; 87040; 99284

== ENCOUNTER 2021-06-26 06:53 | Emergency (ER) | payer OTHER, SELFPAY ==
[~2021-06-26] VITALS: Ht 180.3 cm; Wt 104.3 kg
[~2021-06-26 06:53] MED LIST changes: +TAMS0.4C96 PO
[2021-06-26 07:15] VITALS: BP 112/70
--- NOTE | 2021-06-26 08:00 | NUR ---
55 YO MALE BIBS FOR RECHECK, PATIENT WAS HERE ON SUNDAY D/T URINARY RETENTION, ONOFRE PLACED, SENT HOME WITH PRESCRIPTION FLOMAX, ADVISED TO RETURN IN 2 DAYS. PATIENT IS A&OX4, VSS, PRESENTS WITH ONOFRE CATHETER. PMH DENIES NKDA
--- NOTE | 2021-06-26 08:20 | NUR ---
ONOFRE CATHETER REMOVED PER MD ORDER, PATIENT TOLERATED WELL, NO C/O PAIN OR DISCOMFORT. URINE CLEAR AND CARLINE. PATIENT STATES HE HAS BEEN COMPLIANT WITH FLOMAX MEDICATION PRESCRIBED ON SUNDAY.
--- NOTE | 2021-06-26 08:25 | NUR ---
Patient discharged with v/s stable. Written and verbal after care instructions given and explained. Patient verbalized understanding. Ambulatory with steady gait. All questions addressed prior to discharge. Advised to follow up with PMD.
== END 2021-06-26 08:25 | disposition home or self-care (01) ==
LOC: MED 06:53
DX: T83.018A Breakdown (mechanical) of other urinary catheter, initial encounter (principal); R33.9 Retention of urine, unspecified; Z79.899 Other long term (current) drug therapy; Y73.8 Miscellaneous gastroenterology and urology devices associated with adverse incidents, not elsewhere classified
CPT/HCPCS: 99283